=== PATIENT | female | born 1975 | race Caucasian/White ===

== ENCOUNTER 2016-08-11 16:21 | Emergency (ER) | payer MEDICAID ==
[~2016-08-11] VITALS: Ht 182.9 cm; Wt 91.9 kg
[2016-08-11 19:21] VITALS: BP 127/67
[2016-08-11] MEDS ORDERED: KETOROLAC 30 MG/1 ML IM ONE (19:30)
[2016-08-11] MEDS ORDERED: KETOROLAC 30 MG/1 ML ONE (19:33)
== END 2016-08-11 19:59 | disposition home or self-care (01) ==
LOC: ED 19:30
DX: M25.571 Pain in right ankle and joints of right foot (principal)
CPT/HCPCS: 93971; 96372; 99284; J1885